=== PATIENT | male | born 1985 | race Caucasian/White ===

== ENCOUNTER → 2021-09-04 | Outpatient (CLI) | payer OTHER | LOC: COL.RAD 14:19 | DX: M17.11 Unilateral primary osteoarthritis, right knee (principal) ==

== ENCOUNTER 2021-10-26 10:34 | Outpatient (RCR) | payer OTHER | END 2021-11-05 | disposition home or self-care (01) | LOC: WSOH | DX: S39.012D Strain of muscle, fascia and tendon of lower back, subsequent encounter (principal); S92.401D Displaced unspecified fracture of right great toe, subsequent encounter for fracture with routine healing; F98.8 Other specified behavioral and emotional disorders with onset usually occurring in childhood and adolescence; Y99.0 Civilian activity done for income or pay ==

== ENCOUNTER → 2021-11-04 | Outpatient (CLI) | payer OTHER | LOC: COL.RAD 10:30 | DX: R22.1 Localized swelling, mass and lump, neck (principal) ==

== ENCOUNTER 2021-12-30 14:42 | Outpatient (RCR) | payer OTHER | END 2022-01-05 | disposition home or self-care (01) | LOC: WSOH | DX: S39.012D Strain of muscle, fascia and tendon of lower back, subsequent encounter (principal); S92.401D Displaced unspecified fracture of right great toe, subsequent encounter for fracture with routine healing; F98.8 Other specified behavioral and emotional disorders with onset usually occurring in childhood and adolescence; Y99.0 Civilian activity done for income or pay ==

== ENCOUNTER 2022-02-22 14:05 | Outpatient (RCR) | payer OTHER | END 2022-03-02 09:41 | disposition home or self-care (01) | LOC: PT.GENESIS 14:05 | DX: M23.303 Other meniscus derangements, unspecified medial meniscus, right knee (principal) ==

== ENCOUNTER 2022-02-22 15:29 | Outpatient (RCR) | payer OTHER | END 2022-03-07 | disposition home or self-care (01) | LOC: WSOH | DX: S39.012D Strain of muscle, fascia and tendon of lower back, subsequent encounter (principal); Y99.0 Civilian activity done for income or pay; Z98.890 Other specified postprocedural states ==

== ENCOUNTER 2022-03-03 15:15 | Outpatient (RCR) | payer OTHER | END 2022-03-07 | disposition home or self-care (01) | LOC: PT.GENESIS | DX: M23.303 Other meniscus derangements, unspecified medial meniscus, right knee (principal) ==

== ENCOUNTER 2022-03-29 13:45 | Outpatient (RCR) | payer OTHER | END 2022-04-07 | disposition home or self-care (01) | LOC: PT.GENESIS | DX: M23.303 Other meniscus derangements, unspecified medial meniscus, right knee (principal) ==